=== PATIENT | female | born 1955 | race Caucasian/White ===

== ENCOUNTER 2022-06-03 16:26 | Inpatient (IN) | payer MEDICARE ==
[~2022-06-03 16:26] MED LIST: Iopamidol 300 61% 100 ML VIAL FS ONE
[2022-06-03 18:01] LABS: PTT 28.3 sec (22.0-33.0); Prothrombin Time 10.7 sec (9.5-12.1)
[2022-06-03 18:02] LABS: %Basophils 0.4 % (0.0-2.0); %Eosinophils 0.2 % (0.0-6.0); %Lymphocytes 16.2 % (18.0-47.0); %Monocytes 11.5 % (0.0-10.0); %Neutrophils 71.2 % (40.0-75.0); Hemoglobin 13.7 g/dL (12.0-15.5); Mean Corpuscular HGB CONC 33.3 g/dL (32.0-36.0); Mean Corpuscular Hemoglobin 31.9 pg (27.0-33.0); Mean Corpuscular Volume 95.6 fl (81.6-98.3); Mean Platelet Volume 10.3 fl (7.4-10.4); Platelet Count 189 10x3/uL (150-450); RBC Distribution Width 12.8 % (11.5-14.5); White Blood Cell (WBC) Count 8.4 10x3/uL (3.5-10.5)
[2022-06-03 18:03] LABS: ALT (SGPT) 22 U/L (8-55); AST (SGOT) 26 U/L (5-34); Alkaline Phosphatase 62 U/L (40-110); Anion Gap 16 mmol/L (10-20); BUN (Urea Nitrogen) 6 mg/dL (9.8-20.1); Calc. Creatinine Clearance 0 mL/min (70-130); Calcium 10.3 mg/dL (7.8-10.44); Carbon Dioxide 26 mmol/L (23-31); Chloride 101 mmol/L (98-107); Estimated GFR 95; Globulin 3.4 g/dL (2.4-3.5); Glucose 113 mg/dL (80-115); Lipase 6 U/L (8-78); Potassium 3.3 mmol/L (3.5-5.1); Protein, Total 7.4 g/dL (5.8-8.1); Sodium 140 mmol/L (136-145)
[2022-06-03] MEDS ORDERED: Morphine 4 MG/ML VIAL ONE (20:04)
[2022-06-03] MEDS ORDERED: Ondansetron PF 4 MG/2 ML Vial ONE (20:05)
[2022-06-03] MEDS ORDERED: Furosemide 40 MG/4 ML VIAL ONE (20:53)
[2022-06-03 22:44] LABS: Troponin I 0.014 ng/mL (< 0.028)
[2022-06-03] MEDS ORDERED: Guaifenesin DM 100-10/5 ML UDCUP PO PRN (23:01)
[2022-06-03] MEDS ORDERED: Calcium Carbonate 500 MG ChewTAB PO PRN (23:01)
[2022-06-03] MEDS ORDERED: Nitroglycerin 0.4 MG TAB (25 Tab Bottle) SL PRN (23:04)
[2022-06-03] MEDS ORDERED: Ipratropium/Albuterol 3 ML NEB NEB PRN (23:07)
[2022-06-03] MEDS ORDERED: Famotidine/PF 20 mg/2ml Vial SLOW IVP SCH (23:15)
[2022-06-03] MEDS ORDERED: Ventolin HFA Inhaler 60 PUFF INHALER INH SCH (23:15)
[2022-06-03] MEDS ORDERED: Potassium Chloride 20 MEQ TAB PO SCH (23:30)
[2022-06-04 01:02] VITALS: BMI 31.0
[2022-06-04] MEDS: Morphine 2 MG/ML VIAL SLOW IVP PRN ×4 (01:17→20:50)
[2022-06-04 02:03] LABS: Bilirubin Neg (Negative); Blood, Urine Negative (Negative); Clarity Clear (Clear); Glucose, Urine (Dipstick) Normal (Negative); Ketone, Urine Negative (Negative); Leukocyte 25 (Negative); Nitrite Negative (Negative); Protein, Urine (Dipstick) 15 mg/dl (Neg-Trace); Specific Gravity, Urine 1.015 (1.005-1.030); Urobilinogen Normal mg/dL (Less than 2)
[2022-06-04 02:14] LABS: Bacteria/HPF 1+ HPF (None Seen); RBC/HPF 0-3 HPF (0-3); Squamous Epithelial 0-3 HPF (0-3); Yeast-Hyphae 1+ HPF (None Seen)
[2022-06-04 06:06] LABS: Anion Gap 12 mmol/L (10-20); BUN (Urea Nitrogen) 7 mg/dL (9.8-20.1); Calc. Creatinine Clearance 94 mL/min (70-130); Calcium 10.2 mg/dL (7.8-10.44); Carbon Dioxide 31 mmol/L (23-31); Chloride 102 mmol/L (98-107); Estimated GFR 94; Glucose 86 mg/dL (80-115); Magnesium 2.1 mg/dL (1.6-2.6); Potassium 3.7 mmol/L (3.5-5.1); Sodium 141 mmol/L (136-145)
[2022-06-04 06:11] LABS: #Eosinphils 0.1 10x3/uL (0.0-0.5); #Neutrophils 4.7 10x3/uL (1.5-8.4); %Basophils 0.4 % (0.0-2.0); %Eosinophils 1.4 % (0.0-6.0); %Lymphocytes 24.5 % (18.0-47.0); %Neutrophils 60.4 % (40.0-75.0); Hemoglobin 12.8 g/dL (12.0-15.5); Mean Corpuscular Hemoglobin 32.2 pg (27.0-33.0); Mean Corpuscular Volume 97.7 fl (81.6-98.3); Mean Platelet Volume 10.3 fl (7.4-10.4); Platelet Count 168 10x3/uL (150-450); RBC Distribution Width 12.8 % (11.5-14.5); Red Blood Cell (RBC) Count 3.97 10x6/uL (3.90-5.03); White Blood Cell (WBC) Count 7.7 10x3/uL (3.5-10.5)
[2022-06-04] MEDS: Acetaminophen 325 MG TAB PO PRN ×3 (07:49→20:50)
[2022-06-04] MEDS: Ondansetron PF 4 MG/2 ML Vial IVP PRN ×2 (07:55→13:43)
[2022-06-04] MEDS: Mometasone/Formoterol 200/5 60 PUFF INH SCH ×2 (08:01→20:33)
[2022-06-04] MEDS ORDERED: Furosemide 20 MG/2 ML VIAL SLOW IVP SCH (09:00)
[2022-06-04] MEDS: ALPRAZolam 0.5 MG TAB PO SCH ×2 (09:05→23:50)
[2022-06-04] MEDS: Gabapentin 300 MG CAP PO SCH ×2 (09:09→20:49)
[2022-06-04] MEDS: Apixaban 5 MG TAB PO SCH ×2 (09:10→20:48)
[2022-06-04] MEDS: Famotidine 20 MG TAB PO SCH ×2 (09:10→20:48)
[2022-06-04] MEDS ORDERED: Sertraline 100 MG TAB PO SCH (09:45)
[2022-06-04] MEDS: Sotalol HCl 80 MG TAB PO SCH ×2 (09:53→20:48)
[2022-06-04] MEDS: cefTRIAXone\\ROCEPHIN 1 GM in Sodium Chloride 0.9% 100 ML IVPB SCH (13:44)
[2022-06-04] MEDS: tiZANidine HCl 4 MG TAB PO PRN (15:41)
[2022-06-04] MEDS ORDERED: Atorvastatin Calcium 40 MG TAB PO SCH (21:00)
[2022-06-05] MEDS: tiZANidine HCl 4 MG TAB PO PRN ×2 (01:28→08:28)
[2022-06-05] MEDS: Morphine 2 MG/ML VIAL SLOW IVP PRN (01:29)
[2022-06-05 06:19] LABS: #Eosinphils 0.2 10x3/uL (0.0-0.5); #Monocytes 0.6 10x3/uL (0.0-1.1); %Basophils 0.7 % (0.0-2.0); %Eosinophils 2.7 % (0.0-6.0); %Lymphocytes 31.1 % (18.0-47.0); %Monocytes 10.4 % (0.0-10.0); %Neutrophils 54.9 % (40.0-75.0); Mean Corpuscular Hemoglobin 31.7 pg (27.0-33.0); Mean Platelet Volume 9.9 fl (7.4-10.4); Platelet Count 183 10x3/uL (150-450); RBC Distribution Width 12.5 % (11.5-14.5); White Blood Cell (WBC) Count 5.5 10x3/uL (3.5-10.5)
[2022-06-05 06:38] LABS: Anion Gap 13 mmol/L (10-20); BUN (Urea Nitrogen) 8 mg/dL (9.8-20.1); Calc. Creatinine Clearance 91 mL/min (70-130); Carbon Dioxide 30 mmol/L (23-31); Chloride 100 mmol/L (98-107); Estimated GFR 91; Glucose 99 mg/dL (80-115); Potassium 4.4 mmol/L (3.5-5.1); Sodium 139 mmol/L (136-145)
[2022-06-05] MEDS ORDERED: Potassium Chloride 20 MEQ TAB PO SCH (08:00)
[2022-06-05] MEDS ORDERED: Potassium Chloride 10 MEQ TAB PO SCH (08:00)
[2022-06-05] MEDS: Mometasone/Formoterol 200/5 60 PUFF INH SCH ×2 (08:03→09:10)
[2022-06-05] MEDS: Gabapentin 300 MG CAP PO SCH (08:26)
[2022-06-05] MEDS: ALPRAZolam 0.5 MG TAB PO SCH (08:26)
[2022-06-05] MEDS: Apixaban 5 MG TAB PO SCH (08:27)
[2022-06-05] MEDS: Famotidine 20 MG TAB PO SCH (08:28)
[2022-06-05] MEDS: Sotalol HCl 80 MG TAB PO SCH (08:28)
[2022-06-05] MEDS ORDERED: Sertraline 100 MG TAB PO SCH (09:00)
[2022-06-05] MEDS ORDERED: Furosemide 20 MG TAB PO SCH (09:00)
[2022-06-05 12:36] LABS: Campy jejuni + coli by PCR Negative (Negative); STEC Shiga Toxin 1+2 Negative (Negative); Salmonella spp. by PCR Negative (Negative); Shigella spp + EIEC by PCR Negative (Negative)
[2022-06-05] MEDS: cefTRIAXone\\ROCEPHIN 1 GM in Sodium Chloride 0.9% 100 ML IVPB SCH (14:18)
[2022-06-05] MEDS: Acetaminophen 325 MG TAB PO PRN (14:19)
[2022-06-05 16:28] VITALS: BP 107/52; TEMP 98
== END 2022-06-05 17:30 | DRG 313 ==
LOC: CSHERS 16:26 → CSHTELE 06-04 00:47 → OBSVTOIN 06-05 07:58
PROVIDERS: ADMIT Student in an Organized Health Care Education/Training Program; ATTEND Internal Medicine
DX: R07.89 Other chest pain (principal); J96.11 Chronic respiratory failure with hypoxia; I50.32 Chronic diastolic (congestive) heart failure; I25.10 Atherosclerotic heart disease of native coronary artery without angina pectoris; I48.0 Paroxysmal atrial fibrillation; I11.0 Hypertensive heart disease with heart failure; J44.9 Chronic obstructive pulmonary disease, unspecified; R19.7 Diarrhea, unspecified; E87.6 Hypokalemia; E78.5 Hyperlipidemia, unspecified; F41.9 Anxiety disorder, unspecified; K21.9 Gastro-esophageal reflux disease without esophagitis; R30.0 Dysuria; G62.9 Polyneuropathy, unspecified; F32.A Depression, unspecified; Z95.5 Presence of coronary angioplasty implant and graft; Z98.890 Other specified postprocedural states; Z99.81 Dependence on supplemental oxygen; Z79.899 Other long term (current) drug therapy; Z88.5 Allergy status to narcotic agent; Z88.8 Allergy status to other drugs, medicaments and biological substances; Z90.710 Acquired absence of both cervix and uterus; Z90.49 Acquired absence of other specified parts of digestive tract; Z82.49 Family history of ischemic heart disease and other diseases of the circulatory system; Z87.891 Personal history of nicotine dependence; Z83.6 Family history of other diseases of the respiratory system
CPT/HCPCS: 36415; 70450; 71045; 71260; 72125; 74177; 80048; 80053; 81001; 82274; 83605; 83630; 83690; 83735; 83880; 84443; 84484; 85025; 85610; 85730; 87015; 87040; 87086; 87206; 87324; 87449; 87505; 93005; 93010; 93306; 94760; 96375; 96376; G0378; J0696; J1940; J2270; J2272; J2405; J3490; Q9967; S0028